=== PATIENT | female | born 1975 | race African-American/Black ===

== ENCOUNTER 2017-09-01 20:45 | Emergency (ER) | payer SELFPAY, OTHER, MEDICAID ==
[2017-09-01] MEDS: IBUPROFEN 600 MG TAB PO (22:19)
[2017-09-01] MEDS: LORAZEPAM 1 MG TAB PO (22:19)
== END 2017-09-02 00:30 | disposition home or self-care (01) ==
LOC: FTE 20:45
DX: M25.552 Pain in left hip (principal)
CPT/HCPCS: 73510; 99283-25